=== PATIENT | male | born 1970 | race Caucasian/White ===

== ENCOUNTER 2018-06-04 12:05 | Emergency (ER) | payer BC ==
[~2018-06-04] VITALS: Wt 186.0 kg
[~2018-06-04 12:05] MED LIST: ZYRTEC10 M1 PO
[2018-06-04] MEDS ORDERED: PROAIR HFA0.09 MG/AC IH (12:29)
[2018-06-04] MEDS ORDERED: TOPROL XL 50MG50 MG PO (12:29)
[2018-06-04] MEDS ORDERED: FLONASE ALLERG9.9 ML NS (12:30)
[2018-06-04] MEDS ORDERED: MEDI-FIRST ASP325 MG PO (12:32)
[2018-06-04 12:54] LABS: EOS # 0.2 (0.04-0.40); EOS % 1.3 % (0.0-4.0); HEMOGLOBIN 15.7 g/dL (13.5-18.0); LYMPH# 1.9 (1.50-4.00); MEAN CELL VOLUME 93 fl (78-100); MEAN CORPUSCULAR HEMOGLOBIN 31 pg (27-31); MEAN CORPUSCULAR HGB CONC 33 g/dL (33-37); MEAN PLATELET VOLUME 10.6 fl (7.4-10.4); PLATELET COUNT 214 K/mm3 (130-400); RED BLOOD COUNT 5.08 M/mm3 (4.20-5.60); RED CELL DISTRIBUTION WIDTH 13.7 % (11.5-14.5); WHITE BLOOD COUNT 13.2 K/mm3 (4.8-10.8)
[2018-06-04 13:06] LABS: PROTHROMBIN TIME 9.3 SECONDS (9.0-12.0)
[2018-06-04 13:07] LABS: ALBUMIN 4.1 g/dL (3.5-5.0); BUN/CREATININE RATIO 18.8 (6.0-26.0); CALCIUM 9.2 mg/dL (8.4-10.2); POTASSIUM 3.9 mmol/L (3.6-5.0); TOTAL BILIRUBIN 0.4 mg/dL (0.2-1.3); TOTAL PROTEIN 7.5 g/dL (6.3-8.2)
[2018-06-04 13:08] LABS: D-DIMER 0.29 mg/L FEU (0.15-0.50)
[2018-06-04 13:15] LABS: TROPONIN-I < 0.03 ng/mL (0.00-0.06)
[2018-06-04 15:33] VITALS: BP 155/99
== END 2018-06-04 16:01 | disposition short-term general hospital (02) ==
LOC: ED 12:05
PROVIDERS: Physician Assistant
DX: R07.9 Chest pain, unspecified (principal); R06.02 Shortness of breath; I10 Essential (primary) hypertension; Z79.82 Long term (current) use of aspirin; Z79.899 Other long term (current) drug therapy

== ENCOUNTER → 2018-10-21 | Outpatient (CLI) | payer BC ==
[~2018-10-21] MED LIST changes: +FLONASE ALLERG9.9 ML NS; +MEDI-FIRST ASP325 MG PO; +PROAIR HFA0.09 MG/AC IH; +TOPROL XL 50MG50 MG PO
== END ==
LOC: RAD 15:40 → VAS 15:46
DX: I07.1 Rheumatic tricuspid insufficiency (principal); R00.0 Tachycardia, unspecified

== ENCOUNTER → 2019-07-14 | Outpatient (CLI) | payer BC | LOC: RAD 07:47 | DX: Z13.6 Encounter for screening for cardiovascular disorders (principal); M79.89 Other specified soft tissue disorders ==

== ENCOUNTER → 2021-11-29 | Outpatient (CLI) | payer BC ==
[2021-11-29 14:46] LABS: BASO # 0.03 K/mm3 (0.02-0.10); HEMATOCRIT 49.1 % (42.0-52.0); HEMOGLOBIN 16.2 g/dL (13.5-18.0); LYMPH# 1.99 K/mm3 (1.50-4.00); MEAN CELL VOLUME 95 fl (78-100); MEAN CORPUSCULAR HEMOGLOBIN 31 pg (27-31); MEAN CORPUSCULAR HGB CONC 33 g/dL (33-37); MEAN PLATELET VOLUME 10.3 fl (7.4-10.4); MONO # 0.74 K/mm3 (0.20-0.80); NEU # 6.94 K/mm3 (1.40-6.50); PLATELET COUNT 214 K/mm3 (130-400); RED BLOOD COUNT 5.17 M/mm3 (4.20-5.60); RED CELL DISTRIBUTION WIDTH 13.1 % (11.5-14.5); WHITE BLOOD COUNT 9.8 K/mm3 (4.8-10.8)
[2021-11-29 15:02] LABS: ALBUMIN 3.9 g/dL (3.5-5.0); POTASSIUM 4.8 mmol/L (3.5-5.1)
[2021-11-29 15:03] LABS: CALCIUM 9.6 mg/dL (8.3-10.5)
[2021-11-29 15:04] LABS: TOTAL PROTEIN 7.4 g/dL (6.4-8.3)
[2021-11-29 15:06] LABS: TOTAL BILIRUBIN 0.3 mg/dL (0.2-1.2)
== END ==
LOC: LAB 14:13
PROVIDERS: Family Medicine
DX: Z00.00 Encounter for general adult medical examination without abnormal findings (principal); E78.5 Hyperlipidemia, unspecified; I10 Essential (primary) hypertension; E66.9 Obesity, unspecified; M19.90 Unspecified osteoarthritis, unspecified site; J30.2 Other seasonal allergic rhinitis; J45.30 Mild persistent asthma, uncomplicated; H65.92 Unspecified nonsuppurative otitis media, left ear; Z87.39 Personal history of other diseases of the musculoskeletal system and connective tissue

== ENCOUNTER → 2022-03-10 | Outpatient (CLI) | payer BC | LOC: RAD 10:29 | DX: M17.12 Unilateral primary osteoarthritis, left knee (principal) ==

== ENCOUNTER → 2023-01-16 | Outpatient (CLI) | payer BC ==
[2023-01-16 12:22] LABS: BASO # 0.02 K/mm3 (0.02-0.10); EOS # 0.11 K/mm3 (0.04-0.40); EOS % 0.9 % (0.0-4.0); HEMATOCRIT 49.1 % (42.0-52.0); HEMOGLOBIN 16.2 g/dL (13.5-18.0); LYMPH# 1.93 K/mm3 (1.50-4.00); MEAN CELL VOLUME 94 fl (78-100); MEAN CORPUSCULAR HEMOGLOBIN 31 pg (27-31); MEAN CORPUSCULAR HGB CONC 33 g/dL (33-37); MEAN PLATELET VOLUME 10.8 fl (7.4-10.4); MONO # 0.86 K/mm3 (0.20-0.80); NEU # 8.79 K/mm3 (1.40-6.50); PLATELET COUNT 217 K/mm3 (130-400); RED BLOOD COUNT 5.24 M/mm3 (4.20-5.60); WHITE BLOOD COUNT 11.7 K/mm3 (4.8-10.8)
[2023-01-16 12:27] LABS: ALBUMIN 4.1 g/dL (3.5-5.0)
[2023-01-16 12:28] LABS: POTASSIUM 4.4 mmol/L (3.5-5.1)
[2023-01-16 12:30] LABS: TOTAL PROTEIN 7.3 g/dL (6.4-8.3)
[2023-01-16 12:31] LABS: CALCIUM 9.6 mg/dL (8.3-10.5)
[2023-01-16 12:34] LABS: TOTAL BILIRUBIN 0.3 mg/dL (0.2-1.2)
== END ==
LOC: LAB 12:12
PROVIDERS: Nurse Practitioner
DX: I10 Essential (primary) hypertension (principal); M19.90 Unspecified osteoarthritis, unspecified site

== ENCOUNTER → 2024-06-08 | Outpatient (CLI) | payer BC ==
[~2024-06-08] MED LIST changes: +AMOXICILLIN AND1 TA2 PO; +CELECOXIB200 M1 PO; +CYCLOBENZAPRINE10 M1 PO; +MORGIDOX 1X100100 MG PO; +PERCOCET 325 MG1 TAB PO; +PREDNISONE20 M1 PO; +PROTONIX TR40 M1 PO; +SERTRALINE50 MG PO; +ZESTRIL5 M1 PO; +ZOLPIDEM TART10 MG PO
== END ==
LOC: RAD 14:56
DX: M51.36 Other intervertebral disc degeneration, lumbar region (principal)